=== PATIENT | male | born 1950 | race American Indian/Alaskan Native ===

== ENCOUNTER 2022-05-09 05:51 | Observation (INO) | payer MEDICARE, OTHER ==
--- NOTE | 2022-05-05 13:16 | Anesthesia Consultation ---
Anesthesia Consult and Med Hx Date of service: 05/09/22 - Airway Anesthetic Teeth Evaluation: Good, Bridges Mental/Hyoid Distance: Adequate Mallampati Class: Class I Intubation Access Assessment: Probably Good - Pulmonary Exam CTA: Yes - Cardiac Exam Cardiac Exam: RRR - Pre-Operative Health Status ASA Pre-Surgery Classification: ASA3 Proposed Anesthetic Plan: General Nerve Block: Adductor canal - Pulmonary Hx Smoking: No Hx Respiratory Symptoms: No Hx Sleep Apnea: Yes (+ CPAP) - Cardiovascular System Hx Hypertension: Yes Hx Coronary Artery Disease: Yes (no hx CHF) Hx Percutaneous Transluminal Coronary Angioplasty (PTCA): Yes (stent x2 2014; off plavix x1 wk) Hx Cardia Arrhythmia: No (sinus liz at baseline) - Central Nervous System 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 Preop cardiac and medical eval on chart reviewed. Labs 04/05/22: H/H/plt 13/40/188, BUN/candle molder machine 11/0.8, coags wnl. Plan for overnight admission post op.
[~2022-05-09 05:51] MED LIST: MELOXICAM 7.5 MG TAB PO SCH
[2022-05-09] MEDS ORDERED: LACTATED RINGERS 1,000 ML IV SCH (06:00)
[2022-05-09] MEDS ORDERED: ceFAZolin/STERILE WATER 2 GM/20 ML SYRINGE IV NR ×2 (06:00→08:00)
[2022-05-09] MEDS ORDERED: MELOXICAM 7.5 MG TAB PO SCH (06:00)
[2022-05-09] MEDS ORDERED: MIDAZOLAM 2 MG/2 ML INJ IV NR (06:00)
[2022-05-09] MEDS ORDERED: fentaNYL 100 MCG/2 ML INJ IV PRN (06:00)
[2022-05-09] MEDS ORDERED: LIDOCAINE MPF (2%) 20 MG/1 ML VIAL 5 ML ONE (07:12)
[2022-05-09] MEDS ORDERED: ROCURONIUM 50 MG/5 ML INJ IV ONE (07:12)
[2022-05-09] MEDS ORDERED: KETAMINE/STERILE WATER 50 MG/ML SYRINGE ONE (07:13)
[2022-05-09] MEDS ORDERED: propofoL 200 MG/20 ML VIAL IV ONE (07:13)
[2022-05-09] MEDS: ACETAMINOPHEN 325 MG TAB PO SCH ×4 (07:15→15:33)
[2022-05-09] MEDS ORDERED: LIDOCAINE-MPF (1%) 10 MG/1 ML VIAL 5 ML INFILTRATI ONE (07:19)
[2022-05-09] MEDS ORDERED: TRANEXAMIC ACID 1,000 MG/10 ML ONE (07:23)
[2022-05-09] MEDS ORDERED: methylPREDNISolone ACETATE 40 MG/1 ML INJ ONE (07:24)
[2022-05-09] MEDS ORDERED: BUPIVACAINE/PF (0.5%) 5 MG/1 ML 30 ML VIAL INFILTRATI ONE ×2 (07:25→09:30)
[2022-05-09] MEDS ORDERED: SODIUM CHLORIDE 0.9% 50 ML ONE (07:25)
[2022-05-09] MEDS ORDERED: MORPHINE 10 MG/1 ML INJ ONE (07:25)
[2022-05-09] MEDS ORDERED: ROPIVACAINE/PF (0.5%) 5 MG/1 ML 30 ML VIAL ONE (07:25)
[2022-05-09] MEDS ORDERED: VANCOMYCIN 1000 MG INJ ONE (07:26)
[2022-05-09] MEDS ORDERED: NEOMY 40 MG/POLYMYXIN B 200,000 UNITS/ML (GU) AMPULE IR ONE (07:27)
--- NOTE | 2022-05-09 07:38 | Anesthesia Day of Surgery ---
Anesthesia Day of Surgery - Day of Surgery Patient Examined: Yes Patient H&P Reviewed: Yes Patient is NPO: Yes Beta Blockers: Yes Cardiac Clearance: Yes Pulmonary Clearance: No Musa's Test: N/A
[2022-05-09] MEDS ORDERED: TOBRAMYCIN 40 MG/ML VIAL 2 ML IV ONE ×2 (07:52→09:08)
[2022-05-09 07:57] LABS: Hematocrit 38.5 % (35.5-45.6); Hemoglobin 12.8 gm/dl (11.8-15.2); Mean Corpuscular HGB Conc 33 % (32-34); Mean Corpuscular Volume 93 fl (84-94); Platelet Count 165 K/mm3 (140-440); Red Blood Count 4.16 M/mm3 (3.65-5.03); Red Cell Distribution Width 13.1 % (13.2-15.2)
[2022-05-09] MEDS ORDERED: SODIUM CHLORIDE 0.9% 1000 ML 1,000 ML IV SCH (08:00)
[2022-05-09 08:07] LABS: INR 0.84 (0.87-1.13)
[2022-05-09 08:08] LABS: Partial Thromboplastin Time 29.5 Sec. (24.2-36.6)
[2022-05-09 08:10] LABS: BUN/Creatinine Ratio 28; Blood Urea Nitrogen 22 mg/dL (9-20); Calcium 9.2 mg/dL (8.4-10.2); Hemolysis Index 23
[2022-05-09] MEDS ORDERED: ePHEDrine SULFATE 50 MG/1 ML INJ ONE (08:39)
[2022-05-09] MEDS ORDERED: ONDANSETRON 4 MG/2 ML INJ ONE (08:54)
[2022-05-09] MEDS ORDERED: NEOSTIGMINE 10MG/10 ML INJ MDV ONE (08:54)
[2022-05-09] MEDS ORDERED: GLYCOPYRROLATE 0.4 MG/2 ML INJ ONE (08:54)
[2022-05-09] MEDS ORDERED: dexAMETHasone 20 MG/5 ML VIAL ONE (08:54)
[2022-05-09] MEDS ORDERED: ONDANSETRON 4 MG/2 ML INJ IV PRN ×2 (09:00→11:56)
[2022-05-09] MEDS ORDERED: MORPHINE 4 MG/1 ML INJ IV PRN (09:00)
[2022-05-09] MEDS ORDERED: traMADol 50 MG TAB PO PRN (09:00)
[2022-05-09] MEDS ORDERED: methylPREDNISolone ACETATE 40 MG/1 ML INJ INTRA-ARTI ONE (09:31)
[2022-05-09] MEDS ORDERED: MORPHINE 10 MG/1 ML INJ IM ONE (09:31)
[2022-05-09] MEDS ORDERED: SODIUM CHLORIDE 0.9% 50 ML IVPB IV ONE (09:32)
[2022-05-09] MEDS ORDERED: VANCOMYCIN 1,000 MG/20 ML IV ONE (09:35)
[2022-05-09] MEDS ORDERED: SODIUM CHLORIDE 0.9% IRR 1,500 ML BOTTLE IR ONE (09:37)
[2022-05-09] MEDS ORDERED: SODIUM CHLORIDE 0.9% IV SCH (10:00)
[2022-05-09] MEDS ORDERED: TOBRAMYCIN IV SCH (10:00)
[2022-05-09] MEDS ORDERED: HYDROmorphone 0.5 MG/0.5 ML INJ IV PRN ×2 (11:56)
--- NOTE | 2022-05-09 12:02 | Post Operative Note ---
Pre-op diagnosis: Right knee osteoarthritis Post-op diagnosis: same Findings: Right knee tricompartmental arthritis Procedure: Right Total knee replacement Anesthesia: GETA Surgeon: SWAPNA ELKINS Gaming Manager: CHE CORMIER Estimated blood loss: 50-100ml Pathology: none Specimen disposition: to lab Condition: stable Disposition: PACU
--- NOTE | 2022-05-09 12:14 | Operative Report ---
Operative Report Operative Report: Patient Name: Clyde Mitchell Date of : 1950 Date of Surgery: 05/09/22 Pre-Operative Diagnosis: Right knee osteoarthritis, lichen planus over right knee Post-Operative Diagnosis: right knee osteoarthritis, lichen planus over right knee Procedure: Right Total knee replacement Surgeon: Gerardo Parham DO Assistants: Lana Shin PA-C EBL: 50cc Complications: None Anesthesia: GETA, plus regional nerve block for post-operative pain control Implants: Medacta GMK Sphere size 4+ femur, size 4 tibia, 10mm CS polyethylene insert, size 2 patella Tourniquet Time: 101 minutes Indications: This is a 72-year-old male who presented with worsening right > left knee pain over the last 4 years. Pain is worse with weight bearing. Patient had difficulty ambulating, using stairs because of the pain. Patient had tried nonoperative management including physical therapy/home exercises, joint injections, anti-inflammatory medications, activity modifications, ambulating with assistive devices without any lasting pain relief. Patient elected to undergo right total knee replacement. Patient was met in the preoperative holding area where the risk, benefits, alternatives to surgery were explained to the patient in detail. Risks include but are not limited to infection, bleeding, neurovascular injury, soft tissue injury, infection, need for further surgery, need for revision surgery, fracture, dislocation, pain, stiffness, loss of limb, loss of life. 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 I discussed with the patient that we will have to avoid making her incision over this area of concern. Discussed we will do a curvilinear incision over his right knee. Patient uses a steroid cream for treatment but notes it is not getting better. we will also use antibiotic beads to decrease his risk of infection. The skin will be closed with nylon sutures and we will place a negative pressure wound therapy dressing. Informed consent was obtained after all questions were thoroughly answered. Procedure: Patient was placed supine on the operating room table and all bony prominences were well-padded. The right lower extremity was prepped and draped in the usual sterile fashion. A timeout was performed by all members of the operating room team. An Esmarch bandage was used to wrap the right lower extremity and the tourniquet was inflated to 250 mmHg. A curvilinear incision was made around the patella of the right knee avoiding the area of licehn planus on the inferior aspect of his knee. Sharp dissection was used to go through the skin and the subcutaneous fat. Medial and lateral fasciocutaneous flaps were then elevated. Using electrocautery a medial parapatellar arthrotomy was then performed. Upon inspection of the knee joint there was severe osteoarthritis in the medial, lateral and patellofemoral compartments. The ACL and the PCL as well as the meniscal remnants were then removed. A custom cutting guide had been made for the patient preoperatively based on CT scans. It was then fixed to the distal femur using 3 pins. Using an oscillating saw the distal femoral resection was then performed. The custom cutting guide was then removed and a size 4+ 4-in-1 cutting block was then secured to the distal femur using 2 bone screws. Again using the oscillating saw the anterior and posterior distal femoral cuts were made along with the anterior and posterior chamfer cuts. Next our attention was then turned to the proximal tibia. The custom proximal tibial cutting jig was then secured to the proximal tibia using 3 pins. An oscillating saw was used to make our proximal tibial resection. Next using a laminar slope runner the knee joint was opened up in 90 degrees of flexion. Using a 0.5 inch curved osteotome the posterior osteophytes were removed from both the posterior medial distal femur as well as posterior lateral distal femur. The meniscal remnants were then removed. Next the tibia was anteriorly subluxed and a size 4 tibial guide was then placed in the appropriate amount of rotation parallel to the rotational axis of the tibia of the [place] knee. Tibial guide was secured to the proximal tibia using 2 pins. The tibia was then drilled and punched in the proper rotation. Trial components were then placed on the tibia as well as the femur. The knee was taken through the full range of motion and found to be stable. The knee was able to be flexed to 130 degrees and extension to 0 degrees. There was no varus or valgus laxity with the knee in full extension. The knee was flexed to 90 degrees and again varus and valgus stress was applied. There was no gapping of the medial side with the knee 30 degrees of flexion, the lateral side had approximately 2 mm of gapping which was consistent with the kinematics of the [place] knee joint. The patella was also tracking well within the trochlear groove with no lateral tilt or subluxation. The patella was then everted and cut down to 14 mm using a free hand technique. 3 holes were drilled into the patella and the trial size 2 patellar button was placed. Again the knee was taken through the full range of motion with good patella tracking. At this point we were satisfied with the overall range of motion the stability of the patella tracking as well as the knee. All trials were then removed. The real components were opened. The knee was copiously irrigated with antibiotic saline and then dried. A local anesthetic cocktail was then injected into the posterior capsule as well as the surrounding deep tissues of the knee joint. 2 bags of cement were mixed. Once the cement was in a doughy state the real components were cemented into place starting with the tibia followed by the femur and then the patella. All excess cement was then removed using curettes from around the implants. Once the cement had completely hardened the knee was irrigated again with normal saline. The knee was then copiously irrigated with normal saline using pulsatile lavage. The tourniquet was let down. Electrocautery was used throughout the case to maintain meticulous hemostasis. 10cc of dissolvable synthecure antibiotic beads were placed into the knee joint. The beads were mixed with 1g of vancomycin powder and 240mg of liquid tobramycin. The arthrotomy was then closed in flexion in a watertight fashion using #0 vicryl suture in an interrupted fashion. This was reinforced with a running #1 strata fix PDS suture the deep fascial layer was closed with 0 Vicryl. The subcutaneous layers were closed with 2-0 Vicryl and the skin was closed with 3-0 Monocryl. The wound was then covered with JOSE negative pressure wound therapy dressing. The right lower extremity was wrapped in an Ezekiel wrap from the foot all the way up to the proximal thigh. The sponge and needle count were correct in the case. The patient was then awakened by the anesthesia team and taken to the recovery room in stable condition. The patient's right total knee arthroplasty was performed using the caliper kinematically aligned technique with patient specific custom cutting guides.
--- NOTE | 2022-05-09 12:49 | XRay Report ---
RIGHT KNEE 2 VIEWS INDICATION: s/p right total knee replacement. COMPARISON: None. IMPRESSION: Recent right knee arthroplasty changes are evident. The hardware appears well applied w ith anatomic alignment at the joint. There are numerous small rounded calcific densities measuring up to 5 mm which appear to be within the joint space and suprapatellar recess. This may represent calci fied intra-articular foreign bodies or chondromatosis. Please correlate with the images. Signer Name: Richy Fabian Jr, MD Signed: 05/09/2022 12:45 PM Workstation Name: [id number]
[2022-05-09] MEDS ORDERED: PHENOL 1.4% 177 ML BOTTLE MM PRN (14:08)
[2022-05-09] MEDS: DOCUSATE SODIUM 100 MG CAP PO SCH ×2 (14:45→22:21)
--- NOTE | 2022-05-09 15:24 | Post Anesthesia Evaluation ---
- Post Anesthesia Evaluation Patient Participated: Yes Airway Patent: Yes Stable Respiratory Function: Yes Nausea/Vomiting: No Temp > 96.8F: Yes Pain Manageable: Yes Adequeate Hydration: Yes Anesthesia Complications: No Block Receding Appropriately: Yes Patient on Ventilator: No
[2022-05-09] MEDS: ceFAZolin/NS 1 GM/50 ML 1 GM/50 ML BAG IV SCH (15:43)
[2022-05-09] MEDS ORDERED: BENZOCAINE/MENTHOL LOZENGE MM PRN (16:00)
[2022-05-09] MEDS: KETOROLAC 30 MG/1 ML INJ IV SCH (17:34)
[2022-05-09] MEDS ORDERED: CLOBETASOL 0.05% CREAM 15 GM TP PRN (20:20)
[2022-05-09] MEDS ORDERED: DUTASTERIDE PO SCH (20:30)
[2022-05-09] MEDS ORDERED: TAMSULOSIN PO SCH (20:30)
[2022-05-09] MEDS ORDERED: NON-FORMULARY EACH (Ascorbic Acid [Vitamin C] 1,000 MG Tablet) PO SCH (20:30)
--- NOTE | 2022-05-09 20:55 | Consultation ---
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) Past Surgical History: total knee replacement (Right) Social history: lives with family, full code Medications and Allergies Allergies Allergy/AdvReac Type Severity Reaction Status Date / Time Ocuzksn-WYQ-GrO Reductase AdvReac Intermediate cramping Verified 10/25/13 10:35 Inhibitor and [Iupvcik-Wni-Bkw Reductase burning Inhibitor] sensation zesteril Allergy Intermediate coughing Uncoded 10/25/13 10:33 Home Medications Medication Instructions Recorded Confirmed Last Taken Type Clopidogrel Bisulfate [Plavix] 75 mg PO DAILY 10/25/13 05/02/22 04/29/22 History Gabapentin 1,200 mg PO BID 10/25/13 05/02/22 12/06/13 08:00 History 400 mg traMADoL [Ultram 50 MG tab] 50 mg PO DAILY PRN 10/25/13 05/02/22 12/06/13 07:00 History 50 mg Clobetasol 0.05% [Temovate] 1 gm TP PRN PRN 11/21/13 05/02/22 11/29/13 08:00 History topical Dutasteride/Tamsulosin HCl [Shani 0.4 mg PO DAILY 12/06/13 05/02/22 12/06/13 07:00 History 0.5-0.4 mg] 1 tab Pitavastatin Calcium [Livalo] 4 mg PO DAILY 12/06/13 05/02/22 12/06/13 07:00 History 4 mg Ascorbic Acid [Vitamin C] 2,000 mg PO DAILY 04/29/22 04/29/22 Unknown History Famotidine [Pepcid] 20 mg PO PRN PRN 04/29/22 05/05/22 Unknown History Magnesium 483 mg PO DAILY 04/29/22 04/29/22 Unknown History Melatonin [Melatonin 10MG TAB] 10 mg PO HS 04/29/22 04/29/22 Unknown History Tramadol HCl [Tramadol HCl ER] 200 mg PO DAILY 04/29/22 05/09/22 05/08/22 History Vitamin B Complex [Balanced B-50] 1 tab PO DAILY 04/29/22 04/29/22 Unknown History Zinc [Zinc 50mg TAB] 50 mg PO DAILY 04/29/22 04/29/22 Unknown History carvediloL [Coreg] 12.5 mg PO BID 04/29/22 04/29/22 Unknown History Active Meds: Active Medications Acetaminophen (Acetaminophen 325 Mg Tab) 650 mg PO PREOP [facility] Stop: 05/09/22 23:59 Last Admin: 05/09/22 07:15 Dose: 650 mg Acetaminophen (Acetaminophen 325 Mg Tab) 650 mg PO Q8H [facility] Last Admin: 05/09/22 15:33 Dose: 650 mg Aspirin (Aspirin 325 Mg Tab) 81 mg PO BID [facility] Benzocaine/Menthol (Benzocaine/Menthol Lozenge) 1 each MM Q2HR PRN PRN Reason: Sore Throat Carvedilol (Carvedilol 12.5 Mg Tab) 12.5 mg PO BID [facility] Clobetasol Propionate (Clobetasol 0.05% Cream 15 Gm) 0.666 applic TP PRN PRN PRN Reason: Itching Clopidogrel Bisulfate (Clopidogrel 75 Mg Tab) 75 mg PO QDAY [facility] Clopidogrel Bisulfate (Clopidogrel 75 Mg Tab) 75 mg PO DAILY [facility] Docusate Sodium (Docusate Sodium 100 Mg Cap) 100 mg PO BID [facility] Last Admin: 05/09/22 14:45 Dose: Not Given Fentanyl (Fentanyl 100 Mcg/2 Ml Inj) 100 mcg IV ONCE PRN PRN Reason: sedation for nerve block Stop: 05/09/22 23:59 Last Admin: 05/09/22 07:49 Dose: 50 mcg Gabapentin (Gabapentin 400 Mg Cap) 1,200 mg PO BID [facility] Hydromorphone HCl (Hydromorphone 0.5 Mg/0.5 Ml Inj) 0.25 mg IV Q10MIN PRN PRN Reason: Pain, Moderate (4-6) Stop: 05/09/22 23:00 Hydromorphone HCl (Hydromorphone 0.5 Mg/0.5 Ml Inj) 0.5 mg IV Q10MIN PRN PRN Reason: Pain , Severe (7-10) Stop: 05/09/22 23:00 Last Admin: 05/09/22 14:07 Dose: 0.5 mg Lactated Ringer's (Lactated Ringers) 1,000 mls @ 100 mls/hr IV DIRECT BESSIE Stop: 05/09/22 23:59 Last Admin: 05/09/22 07:22 Dose: 100 mls/hr Sodium Chloride (Nacl 0.9% 1000 Ml) 1,000 mls @ 75 mls/hr IV DIRECT BESSIE Cefazolin Sodium (Ancef/Ns 1 Gm/50 Ml) 1 gm in 50 mls @ 100 mls/hr IV Q8H [facility] Stop: 05/10/22 00:29 Last Admin: 05/09/22 15:43 Dose: 100 mls/hr Meloxicam (Meloxicam 7.5 Mg Tab) 7.5 mg PO PREOP BESSIE Stop: 05/09/22 23:59 Last Admin: 05/09/22 07:15 Dose: 7.5 mg Midazolam HCl (Midazolam 2 Mg/2 Ml Inj) 2 mg IV PREOP NR Stop: 05/09/22 23:59 Last Admin: 05/09/22 07:49 Dose: 2 mg Miscellaneous Medication (Ascorbic Acid [Vitamin C]) 2,000 mg PO DAILY BESSIE Miscellaneous Medication (Dutasteride/Tamsulosin Hcl [Shani 0.5-0.4 Mg]) 0.4 mg PO DAILY [facility] Miscellaneous Medication (Melatonin [Melatonin 10mg Tab]) 10 mg PO HS [facility] Miscellaneous Medication (Pitavastatin Calcium [Livalo]) 4 mg PO DAILY [facility] Miscellaneous Medication (Zinc [Zinc 50mg Tab]) 50 mg PO DAILY [facility] Morphine Sulfate (Morphine 4 Mg/1 Ml Inj) 4 mg IV Q4H PRN PRN Reason: Pain , Severe (7-10) Ondansetron HCl (Ondansetron 4 Mg/2 Ml Inj) 4 mg IV Q8H PRN PRN Reason: Nausea And Vomiting Phenol (Phenol 1.4% 177 Ml Bottle) 1 spray MM Q2H PRN PRN Reason: Sore Throat Sodium Chloride (Sodium Chloride 0.9% 10 Ml Flush Syringe) 10 ml IV PRN PRN PRN Reason: LINE FLUSH Tramadol HCl (Tramadol 50 Mg Tab) 50 mg PO Q6H PRN PRN Reason: Pain, Moderate (4-6) Review of Systems All systems: negative Exam - Constitutional Vitals: Temp Pulse Resp BP Pulse Ox 98.1 F 74 22 137/73 97 05/09/22 16:38 05/09/22 16:38 05/09/22 16:38 05/09/22 16:38 05/09/22 20:38 General appearance: Present: no acute distress, well-nourished - EENT Eyes: Present: PERRL ENT: hearing intact, clear oral mucosa - Neck Neck: Present: supple, normal ROM - Respiratory Respiratory effort: normal Respiratory: bilateral: CTA - Cardiovascular Heart rate: 78 Rhythm: regular (78) Heart Sounds: Present: S1 & S2. Absent: rub, click - Extremities Extremities: pulses symmetrical, No edema, abnormal (Weakness in both upper EXTR) Peripheral Pulses: within normal limits - Abdominal General gastrointestinal: Present: soft, non-tender, non-distended, normal bowel sounds Male genitourinary: Present: normal - Integumentary Integumentary: Present: clear, warm, dry - Musculoskeletal Musculoskeletal: gait normal, strength equal bilaterally - Psychiatric Psychiatric: appropriate mood/affect, intact judgment & insight - Neurologic Neurologic: CNII-XII intact, moves all extremities Results - Labs CBC & Chem 7: 05/10/22 05:37 05/10/22 05:37 Labs: Abnormal lab results 05/09/22 05/09/22 05/09/22 Range/Units 07:22 07:22 07:22 WBC 4.0 L (4.5-11.0) K/mm3 RDW 13.1 L (13.2-15.2) % INR 0.84 L (0.87-1.13) BUN 22 H (9-20) mg/dL Assessment and Plan - Patient Problems (1) Hx of total knee arthroplasty Current Visit: Yes Status: Acute Qualifiers: Laterality: right Qualified Code(s): Z96.651 - Presence of right artificial knee joint Plan to address problem: Had a right TKA today . Doing well PT and OT (2) Hypertension Current Visit: Yes Status: Chronic Qualifiers: Hypertension type: primary hypertension Qualified Code(s): I10 - Essential (primary) hypertension Plan to address problem: Continue antihypertensives and adjust medications as necessary (3) GERD (gastroesophageal reflux disease) Current Visit: Yes Status: Chronic Qualifiers: Esophagitis presence: without esophagitis Qualified Code(s): K21.9 - Gastro-esophageal reflux disease without esophagitis Plan to address problem: Continue PPIs (4) Coronary artery disease Current Visit: Yes Status: Chronic Qualifiers: Coronary Disease-Associated Artery/Lesion type: [place] artery [place] vs. transplanted heart: [place] heart Plan to address problem: Will hold Plavix for couple days (5) Peripheral neuropathy Current Visit: Yes Status: Acute Qualifiers: Peripheral neuropathy type: polyneuropathy, unspecified Qualified Code(s): G62.9 - Polyneuropathy, unspecified Plan to address problem: On gabapentin (6) Hyperlipidemia Current Visit: Yes Status: Chronic Qualifiers: Hyperlipidemia type: unspecified Qualified Code(s): E78.5 - Hyperlipidemia, unspecified Plan to address problem: On statins (7) DVT prophylaxis Current Visit: Yes Status: Acute Plan to address problem: Recommend Eliquis 2.5 twice daily for 5 weeks
[2022-05-09] MEDS ORDERED: MELATONIN 5 MG TAB PO SCH (22:00)
[2022-05-09] MEDS ORDERED: NON-FORMULARY EACH (Melatonin [Melatonin 10mg Tab] 10 MG Tablet) PO SCH (22:00)
[2022-05-09] MEDS: GABAPENTIN 400 MG CAP PO SCH (22:21)
[2022-05-09] MEDS: ASPIRIN 325 MG TAB PO SCH (22:22)
[2022-05-09] MEDS: carvediloL 12.5 MG TAB PO SCH (22:22)
[2022-05-09] MEDS: CLOPIDOGREL 75 MG TAB PO SCH (22:25)
[2022-05-10] MEDS: ceFAZolin/NS 1 GM/50 ML 1 GM/50 ML BAG IV SCH (00:28)
[2022-05-10] MEDS: ACETAMINOPHEN 325 MG TAB PO SCH ×3 (00:28→15:18)
[2022-05-10 06:11] LABS: Hematocrit 34.7 % (35.5-45.6); Hemoglobin 11.8 gm/dl (11.8-15.2)
[2022-05-10 06:28] LABS: BUN/Creatinine Ratio 17; Blood Urea Nitrogen 12 mg/dL (9-20); Calcium 9.5 mg/dL (8.4-10.2); Hemolysis Index 3
[2022-05-10] MEDS: KETOROLAC 30 MG/1 ML INJ IV SCH (07:34)
[2022-05-10] MEDS: DOCUSATE SODIUM 100 MG CAP PO SCH (09:28)
[2022-05-10] MEDS: ASPIRIN 325 MG TAB PO SCH (09:28)
[2022-05-10] MEDS: GABAPENTIN 400 MG CAP PO SCH (09:29)
[2022-05-10] MEDS: CLOPIDOGREL 75 MG TAB PO SCH (09:29)
[2022-05-10] MEDS: carvediloL 12.5 MG TAB PO SCH (09:29)
[2022-05-10] MEDS ORDERED: PITAVASTATIN CALCIUM 4 MG PO SCH (10:00)
[2022-05-10] MEDS ORDERED: TAMSULOSIN 0.4 MG CAP PO SCH (10:00)
[2022-05-10] MEDS ORDERED: NON-FORMULARY EACH (Zinc [Zinc 50mg Tab] 50 MG Tablet) PO SCH (10:00)
[2022-05-10] MEDS ORDERED: ZINC SULFATE 220 MG CAP PO SCH (10:00)
[2022-05-10] MEDS ORDERED: CLOPIDOGREL 75 MG TAB PO SCH (10:00)
[2022-05-10] MEDS ORDERED: ASCORBIC ACID 500 MG TAB PO SCH (10:00)
[2022-05-10 11:25] VITALS: BP 100/48
--- NOTE | 2022-05-10 11:59 | Post Anesthesia Evaluation ---
- Post Anesthesia Evaluation Patient Participated: Yes Airway Patent: Yes Stable Respiratory Function: Yes Nausea/Vomiting: No Temp > 96.8F: Yes Pain Manageable: Yes Adequeate Hydration: Yes Anesthesia Complications: No Block Receding Appropriately: Yes Patient on Ventilator: No Other Comments: Pt had successful physical therapy session
--- NOTE | 2022-05-10 13:40 | Progress Note ---
Assessment and Plan 72-year-old male status post right total knee replacement postop day #1 - Overall patient is doing well. Pain is controlled, tolerating oral diet. - Weightbearing as tolerated on right lower extremity - physical therapy - Appreciate medical consult by Dr. Feliz - Patient started on Plavix 75 mg p.o. daily, aspirin 81 mg p.o. twice daily for DVT prophylaxis. - Discharge plan to home today - Patient Problems (1) Osteoarthritis of right knee Current Visit: Yes Status: Acute Subjective Date of service: 05/10/22 Principal diagnosis: s/p right total knee replacement Interval history: Patient seen and examined at bedside. Patient states overall he is doing well. Patient complains of soreness in his right knee. Patient states he was able to get up and walk twice today with physical therapy and go up and down the stairs. Patient is tolerating oral diet. Denies any fevers or chills. No other complaints at this time. Patient states he received his Plavix today. Objective Vital signs: Vital Signs - 12hr 05/10/22 05/10/22 05/10/22 04:49 10:00 11:21 Temperature 99.1 F 98.9 F Pulse Rate 95 H 85 Respiratory 16 20 Rate Blood Pressure 131/66 100/48 O2 Sat by Pulse 98 94 94 Oximetry Narrative Exam: RLE: Dressings are clean, dry, intact. Ankle plantarflexion, dorsiflexion, EHL motor function intact. L4-S1 sensation to light touch intact. (+) DP Pulse. Incision: clean and dry Weight bearing status: full - Allied Health Allied health notes reviewed: nursing - Labs CBC & BMP: 05/10/22 05:37 05/10/22 05:37 Labs: Abnormal lab results 05/10/22 05/10/22 Range/Units 05:37 05:37 Hct 34.7 L (35.5-45.6) % Creatinine 0.7 L (0.8-1.3) mg/dL Glucose 118 H (75-100) mg/dL
--- NOTE | 2022-05-10 13:45 | Discharge Summary ---
Providers - Providers Date of Admission: 05/09/22 07:51 Date of discharge: 05/10/22 Attending physician: SWAPNA ELKINS DO 05/09/22 07:51 Consult to Case Management [CONS] Routine Services Needed at Discharge: Physical Therapy Notified:: cm Physical Therapy Evaluation and Treat [CONS] Routine Comment: avoid flexion, add, int rotation of operative hip Reason For Exam: post op therapy 05/09/22 12:14 Consult to Physician [CONS] Routine Comment: I ordered plavix to resume on 05/10/22 AM thank you Consulting Provider: CELINE SPANN Physician Instructions: post-op medical management Reason For Exam: post-op medical management Hospitalization Reason for admission: Acute care following right total knee replacement Condition: Stable Procedures: Right total knee replacement done on May 09, 2022 Hospital course: Patient admitted to the hospital for acute care following right total knee replacement surgery. Patient's pain was controlled with oral and IV pain medications. Patient was started on DVT prophylaxis on postop day 1-Plavix and aspirin. Patient was able to work with physical therapy on postop day 1 and was gradually cleared for safe discharge to home. Patient's hemoglobin was stable throughout his hospital course. Patient tolerated oral diet. No fevers or chills. Hospitalist team was consulted for postop medical management. Disposition: 01 HOME / SELF CARE / HOMELESS Final Discharge Diagnosis (Prints w/discharge instructions): right knee osteoarthritis - Discharge Diagnoses (1) Osteoarthritis of right knee Status: Acute Qualifiers: Osteoarthritis type: primary Qualified Code(s): M17.11 - Unilateral primary osteoarthritis, right knee Core Measure Documentation - Palliative Care Palliative Care/ Comfort Measures: Not Applicable - Core Measures Any of the following diagnoses?: stroke, none, history only (history of prior stroke) - Stroke Discharge Requirements Anticoag for atrial fib/atrial flutter: Yes (on plavix) Antithrombotic for ischemic stroke: Yes Exam - Constitutional Vitals: Temp Pulse Resp BP Pulse Ox 98.9 F 85 20 100/48 94 05/10/22 11:21 05/10/22 11:21 05/10/22 11:21 05/10/22 11:21 05/10/22 11:21 General appearance: Present: no acute distress - EENT ENT: hearing intact - Neck Neck: Present: supple - Respiratory Respiratory effort: normal - Cardiovascular Heart Sounds: Present: S1 & S2 - Extremities Extremities: pulses intact, No edema Peripheral Pulses: within normal limits - Abdominal General gastrointestinal: Present: soft, non-tender - Musculoskeletal Musculoskeletal: right sided weakness (Normal status post right total knee replacement) - Psychiatric Psychiatric: appropriate mood/affect - Allied Health Allied health notes reviewed: nursing Plan Activity: advance as tolerated, no driving until cleared by PCP Weight Bearing Status: Full Weight Bearing Diet: regular Wound: keep clean and dry, per your surgeon's advice Special Instructions: no heavy lifting, physical therapy Durable Medical Equipment Needed Upon Discharge: Walker-Rolling Additional Instructions: Follow-up printed postop instructions given by surgeon Follow up with: ESA LUCAS [Other] - 7 Days SWAPNA ELKINS DO [Staff Physician] - 7 Days
== END 2022-05-10 16:31 | disposition home or self-care (01) ==
LOC: OR 05:51 → 3A 07:51 → EDSTATUS 08:00
PROVIDERS: ADMIT Orthopaedic Surgery; ATTEND Orthopaedic Surgery
DX: M17.11 Unilateral primary osteoarthritis, right knee (principal); Z20.822 Contact with and (suspected) exposure to COVID-19; Z79.899 Other long term (current) drug therapy; Z98.890 Other specified postprocedural states
CPT/HCPCS: 27447; 36415; 64447; 73560; 80048; 85014; 85018; 85027; 85610; 85730; 88304; 88311; 96365; 96366; 96375; 97110; 97116; 97162; 97530; C1713; C1776; G0378; J0690; J0696; J1030; J1100; J1170; J1815; J2250; J2270; J2704; J2710; J2795; J3010; J3260; J3370; J3490; J7030; J7120; U0003; 64450; 88309; J7121; J2405